=== PATIENT | female | born 2000 | race Caucasian/White ===

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

== ENCOUNTER 2018-02-23 01:22 | Emergency (ER) | payer MEDICAID ==
[2018-02-23 01:27] VITALS: BP 117/83
== END 2018-02-23 02:15 | disposition left against medical advice (07) ==
DX: Z53.21 Procedure and treatment not carried out due to patient leaving prior to being seen by health care provider (principal)

== ENCOUNTER 2018-02-28 10:42 | Emergency (ER) | payer SELFPAY ==
--- NOTE | 2018-02-28 11:18 | EDPHY ---
H & P Stated Complaint: N/V recently diagnosed with strep Time Seen by Provider: 02/28/18 11:01 HPI/ROS: CHIEF COMPLAINT: "I just feel terrible" HISTORY OF PRESENT ILLNESS: 17-year-old immunocompetent girl in the ER via private vehicle. Patient describes 1 week of feeling ill. She was initially evaluated at [facility] February 21 for similar complaints , diagnosed with strep pharyngitis prescribed Keflex and Zofran with negative mononucleosis in told that if her symptoms worsen to go to the ER. The next day she woke feeling worse, came to the [facility] here, registered however left without being seen. Today she went to [facility] complaining of 10 lb weight loss, inability to tolerate oral intake, nausea, abdominal cramping I was referred to the ER for evaluation. She also notes a new purpuric rash which is resolving however was more pronounced approximately 6-7 days ago. Nontender. She has photos of said lesions. She also complains of intermittent abdominal cramping which was exacerbated after she drank chocolate milk this morning. Denies: Chest pain, dyspnea, nuchal rigidity, otalgia, change in voice, visual acuity changes, ocular pain, ocular injection. At the time I interview and examine the patient she is complaining of sore throat, abdominal cramping, fatigue, arthralgia, myalgia PRIMARY CARE PROVIDER: [facility] REVIEW OF SYSTEMS: 10 systems reviewed and negative with the exception of the elements mentioned in the history of present illness PAST MEDICAL & SURGICAL HISTORY: No pertinent medical or surgical history SOCIAL HISTORY:Student nonsmoker PHYSICAL EXAM (Prior to examination, patient consented to physical exam, hands were washed and my usual and customary physical exam procedures followed) 1) GENERAL: Well-developed, well-nourished, alert and oriented. Appears to be in no acute distress. 2) HEAD: Normocephalic, atraumatic 3) HEENT: Pupils equal, round, reactive to light bilaterally. Sclera anicteric. No injection. No discharge. Nasopharynx, oropharynx, clear, no lesions. Moist Mucous membranes. No tonsillar enlargement or exudate. Ears bilaterally with normal tympanic membranes. No evidence of otitis media otitis externa. 4) NECK: Full range of motion, positive adenopathy. No meningeal signs.. 5) LUNGS: Clear auscultation bilaterally, no wheezes, no rhonchi, no retractions. 6) HEART: Regular rate and rhythm, no murmur, no heave, no gallop. 7) ABDOMEN: No guarding, no rebound, no focal tenderness, negative McBurney's, negative Fritz's, negative Rovsing's, negative peritoneal sign, 8) MUSCULOSKELETAL: Moving all extremities, no focal areas of tenderness, no obvious trauma. No peripheral edema or discoloration. 9) BACK: No CVA tenderness, no midline vertebral tenderness, no fluctuance, no step-off, no obvious trauma, no visual or palpable abnormality. 10) SKIN: Subacute purpuric non raise nontender lesions primarily to her lower extremities and to her buttock (exam with nurse Jinger at bedside) . Otherwise no lesions. No blistering, no sloughing of tissue. 11) Psychiatric: Patient is oriented X 3, there is no agitation. DIFFERENTIAL DIAGNOSIS: In no particular order including but not limited to viral syndrome, Henoch-Schoenlein purpura, mononucleosis - Personal History LMP (Females 10-55): Now Current Tetanus/Diphtheria Vaccine: Yes - Medical/Surgical History Hx Asthma: Yes Hx Chronic Respiratory Disease: No Hx Diabetes: No Hx Cardiac Disease: No Hx Renal Disease: No Hx Cirrhosis: No Hx Alcoholism: No Hx HIV/AIDS: No Hx Splenectomy or Spleen Trauma: No Other PMH: SPORT INDUC ASTHMA - Social History Smoking Status: Current every day smoker Constitutional: Initial Vital Signs Temperature (C) 37.0 C 02/28/18 10:55 Heart Rate 77 02/28/18 10:55 Respiratory Rate 18 02/28/18 10:55 Blood Pressure 135/102 H 02/28/18 10:55 O2 Sat (%) 96 02/28/18 10:55 O2 Delivery Mode Room Air Allergies/Adverse Reactions: No Known Allergies Allergy (Unverified 02/28/18 10:59) Home Medications: Medication Instructions Recorded Abx 02/23/18 Zofran Odt 02/23/18 Ondansetron Odt [Zofran Odt] 4 mg PO Q4PRN PRN #10 tab 02/28/18 Medical Decision Making - Diagnostics Imaging Results: Imaging Impressions Chest X-Ray 02/28/18 11:14 Impression: No acute pulmonary disease. ED Course/Re-evaluation: 12:30 p.m.: Patient was re-evaluated with serial exams. At this time she is resting comfortably, has received IV fluids and is feeling improvement in symptoms. I re-examined her abdomen which is soft , no guarding no rebound. I am unable to elicit any abdominal pain including her bilateral lower quadrants. I think that acute surgical abdominal pathology, acute appendicitis, intussusception, ovarian torsion or ovarian pathology are less than likely in this patient. We discussed her purpura which may be secondary to Henoch- Schoenlein purpura. She has no evidence of are renal dysfunction, she is tolerating oral intake. She states that she is hungry and would like to eat. She does note intermittent nausea and requests refill of Zofran which has been provided to her as well as a school note. At this time do not think that further diagnostic studies are indicated. Do not think that dedicated imaging of abdomen is indicated. I saw this patient independently based on established practice protocols. Care of patient under supervision of primary Supervising physician Dr Willard Griffith with whom I discussed case. - Data Points Laboratory Results: Laboratory Results 02/28/18 11:20 02/28/18 11:20 02/28/18 02/28/18 02/28/18 Unknown 11:45 11:45 WBC RBC Hgb Hct MCV MCH MCHC RDW Plt Count MPV Neut % (Auto) Lymph % (Auto) [place] % (Auto) Eos % (Auto) Baso % (Auto) Nucleat RBC Rel Count Absolute Neuts (auto) Absolute Lymphs (auto) Absolute Monos (auto) Absolute Eos (auto) Absolute Basos (auto) Absolute Nucleated RBC Immature Gran % Immature Gran # PT INR APTT 26.5 SEC SEC (23.0-38.0) Sodium Potassium Chloride Carbon Dioxide Anion Gap BUN Creatinine Estimated GFR Glucose Calcium Total Bilirubin Conjugated Bilirubin Unconjugated Bilirubin AST ALT Alkaline Phosphatase Total Protein Albumin Lipase Beta HCG, Qual Urine Color YELLOW Urine Appearance HAZY Urine pH 7.0 (5.0-7.5) Ur Specific [place] 1.020 (1.002-1.030) Urine Protein NEGATIVE (NEGATIVE) Urine Ketones NEGATIVE (NEGATIVE) Urine Blood 1+ H (NEGATIVE) Urine Nitrate NEGATIVE (NEGATIVE) Urine Bilirubin NEGATIVE (NEGATIVE) Urine Urobilinogen 2.0 EU H EU (0.2-1.0) Ur Leukocyte Esterase NEGATIVE (NEGATIVE) Urine RBC 1-3 /hpf /hpf (0-3) Urine WBC 1-3 /hpf /hpf (0-3) Ur Epithelial Cells TRACE /lpf /lpf (NONE-1+) Urine Mucus 1+ /lpf /lpf (NONE-1+) Urine Glucose NEGATIVE (NEGATIVE) Monoscreen Group A Strep Screen Group A Strep DNA Pending 02/28/18 02/28/18 02/28/18 11:30 11:20 11:20 WBC RBC Hgb Hct MCV MCH MCHC RDW Plt Count MPV Neut % (Auto) Lymph % (Auto) [place] % (Auto) Eos % (Auto) Baso % (Auto) Nucleat RBC Rel Count Absolute Neuts (auto) Absolute Lymphs (auto) Absolute Monos (auto) Absolute Eos (auto) Absolute Basos (auto) Absolute Nucleated RBC Immature Gran % Immature Gran # PT INR APTT Sodium 141 mEq/L mEq/L (135-145) Potassium 4.0 mEq/L mEq/L (3.3-5.0) Chloride 108 mEq/L mEq/L (97-110) Carbon Dioxide 25 mEq/l mEq/l (22-31) Anion Gap 8 mEq/L mEq/L (6-14) BUN 10 mg/dL mg/dL (7-23) Creatinine 0.7 mg/dL mg/dL (0.6-1.0) Estimated GFR > 60 Glucose 91 mg/dL mg/dL (70-100) Calcium 9.7 mg/dL mg/dL (8.5-10.4) Total Bilirubin 0.6 mg/dL mg/dL (0.1-1.4) Conjugated Bilirubin 0.2 mg/dL mg/dL (0.0-0.5) Unconjugated Bilirubin 0.4 mg/dL mg/dL (0.0-1.1) AST 49 IU/L H IU/L (14-46) ALT 41 IU/L IU/L (9-52) Alkaline Phosphatase 73 IU/L IU/L (38-126) Total Protein 7.4 g/dL g/dL (6.3-8.2) Albumin 4.2 g/dL g/dL (3.5-5.0) Lipase 147 IU/L IU/L (23-300) Beta HCG, Qual NEGATIVE Urine Color Urine Appearance Urine pH Ur Specific [place] Urine Protein Urine Ketones Urine Blood Urine Nitrate Urine Bilirubin Urine Urobilinogen Ur Leukocyte Esterase Urine RBC Urine WBC Ur Epithelial Cells Urine Mucus Urine Glucose Monoscreen NEGATIVE (NEGATIVE) Group A Strep Screen NEGATIVE (NEGATIVE) Group A Strep DNA 02/28/18 02/28/18 11:20 11:20 WBC 6.45 10^3/uL 10^3/uL (3.80-9.50) RBC 5.06 10^6/uL 10^6/uL (4.18-5.33) Hgb 14.9 g/dL g/dL (12.6-16.3) Hct 44.7 % % (38.0-47.0) MCV 88.3 fL fL (81.5-99.8) MCH 29.4 pg pg (27.9-34.1) MCHC 33.3 g/dL g/dL (32.4-36.7) RDW 14.8 % % (11.5-15.2) Plt Count 327 10^3/uL 10^3/uL (150-400) MPV 9.5 fL fL (8.7-11.7) Neut % (Auto) 59.2 % % (39.3-74.2) Lymph % (Auto) 30.7 % % (15.0-45.0) [place] % (Auto) 7.6 % % (4.5-13.0) Eos % (Auto) 2.0 % % (0.6-7.6) Baso % (Auto) 0.3 % % (0.3-1.7) Nucleat RBC Rel Count 0.0 % % (0.0-0.2) Absolute Neuts (auto) 3.82 10^3/uL 10^3/uL (1.70-6.50) Absolute Lymphs (auto) 1.98 10^3/uL 10^3/uL (1.00-3.00) Absolute Monos (auto) 0.49 10^3/uL 10^3/uL (0.30-0.80) Absolute Eos (auto) 0.13 10^3/uL 10^3/uL (0.03-0.40) Absolute Basos (auto) 0.02 10^3/uL 10^3/uL (0.02-0.10) Absolute Nucleated RBC 0.00 10^3/uL 10^3/uL (0-0.01) Immature Gran % 0.2 % % (0.0-1.1) Immature Gran # 0.01 10^3/uL 10^3/uL (0.00-0.10) PT REJ INR REJ APTT REJ Sodium Potassium Chloride Carbon Dioxide Anion Gap BUN Creatinine Estimated GFR Glucose Calcium Total Bilirubin Conjugated Bilirubin Unconjugated Bilirubin AST ALT Alkaline Phosphatase Total Protein Albumin Lipase Beta HCG, Qual Urine Color Urine Appearance Urine pH Ur Specific [place] Urine Protein Urine Ketones Urine Blood Urine Nitrate Urine Bilirubin Urine Urobilinogen Ur Leukocyte Esterase Urine RBC Urine WBC Ur Epithelial Cells Urine Mucus Urine Glucose Monoscreen Group A Strep Screen Group A Strep DNA Medications Given: Discontinued Medications Ondansetron HCl (Zofran) 4 mg IVP EDNOW ONE Stop: 02/28/18 11:53 Last Admin: 02/28/18 11:53 Dose: 4 mg Departure - Departure Disposition: Home, Routine, Self-Care Clinical Impression: Purpura, Viral syndrome Condition: Good Instructions: Ondansetron (By mouth), Viral Syndrome (ED) Additional Instructions: . Return to the emergency department immediately for change in breathing habits , change in voice, change in swallowing habits, change in mental status, or any other symptoms that concern you. Referrals: [facility] [Clinic] - 1-2 days without fail Stand Alone Forms: School Excuse Prescriptions: Ondansetron Odt [Zofran Odt] 4 mg PO Q4PRN PRN #10 tab PRN Reason: Nausea
[2018-02-28 11:30] LABS: PLATELET COUNT 327 10^3/uL (150-400)
[2018-02-28] MEDS ORDERED: ONDANSETRON 4 MG/2 ML VIAL ONE (11:51)
[2018-02-28] MEDS ORDERED: ONDANSETRON 4 MG/2 ML VIAL IVP ONE (11:52)
[2018-02-28 12:40] VITALS: BP 122/75
== END 2018-02-28 12:44 | disposition home or self-care (01) ==
DX: B34.9 Viral infection, unspecified (principal); F17.200 Nicotine dependence, unspecified, uncomplicated; Z79.2 Long term (current) use of antibiotics
CPT/HCPCS: 96374; J2405

== ENCOUNTER 2018-07-28 02:23 | Emergency (ER) | payer MEDICAID, OTHER ==
--- NOTE | 2018-07-28 02:37 | EDPHY ---
H & P Stated Complaint: vomiting, nausea x 24 hrs Time Seen by Provider: 07/28/18 02:37 HPI/ROS: HPI CHIEF COMPLAINT: Nausea, constipation HISTORY OF PRESENT ILLNESS: Patient is a 18-year-old female, otherwise healthy , has a history of anxiety, presents to the emergency room with nausea. The patient reports that she has had nausea for approximately a week. She was recently on spring. Recently [place]. She denies any large consumption of alcohol. She reports she related how much to drink. Over the past week she has had intermittent nausea. No vomiting. She also reports she has been constipated. Denies chest pain or shortness of breath, denies fever. Denies significant abdominal pain but does have some lower abdominal cramps. No urinary symptoms. Denies being . She went out tonight had 2 alcoholic beverages became more nauseous. No fever. Past Medical History: Anxiety Past Surgical History: Nasal surgery Social History: Denies drugs, [employer] student, occasional alcohol Family History: Noncontributory ROS REVIEW OF SYSTEMS: 10 Systems were reviewed and negative with the exception of the elements mentioned in the history of present illness. Exam Constitutional triage nursing summary reviewed, vital signs reviewed, awake/ alert. Vital signs stable appears well nontoxic Eyes normal conjunctivae and sclera, EOMI, PERRLA. HENT normal inspection, atraumatic, moist mucus membranes, no epistaxis, neck supple/ no meningismus, no raccoon eyes. Respiratory clear to auscultation bilaterally, normal breath sounds, no respiratory distress, no wheezing. Cardiovascular rate normal, regular rhythm, no murmur, no edema, distal pulses normal. Gastrointestinal soft, non-tender, no rebound, no guarding, normal bowel sounds, no distension, no pulsatile mass. Genitourinary no CVA tenderness. Musculoskeletal no midline vertebral tenderness, full range of motion, no calf swelling, no tenderness of extremities, no meningismus, good pulses, neurovascularly intact. Skin pink, warm, & dry, no rash, skin atraumatic. Neurologic awake, alert and oriented x 3, AAOx3, moves all 4 extremities equally, motor intact, sensory intact, CN II-XII intact, normal cerebellar, normal vision, normal speech. Psychiatric normal mood/affect. Heme/Lymph/Immune no lymphadenopathy. Differential Diagnosis: Differential diagnosis includes but is not limited to and in no particular order: Constipation, gastritis, Bowel obstruction, appendicitis, gallbladder disease, diverticulitis, colitis, enteritis, perforated viscus, gastritis, GERD, esophagitis, urinary tract infection, pyelonephritis, kidney stones Medical Decision Making: Plan for this patient IV establishment IV fluid bolus IV Zofran for nausea, basic labs, urinalysis and re-evaluate. Re-evaluation: Serum alcohol level 196 [id number] KUB reviewed stool present. No free air. 6:09 a.m. Patient resting comfortably no acute distress. Alcohol level was close to 200. She received IV fluids here and has done well. Zofran. No vomiting here in feels much better. Her abdomen is soft nontender. Recommend MiraLax for stool softeners for constipation. I also recommend she stop drinking alcohol. Also recommend she return emergency room she develops worsening abdominal pain, fever, vomiting. Patient p.o. Challenge well. Return precautions discussed with her. Recommend she refrain from drinking alcohol as this could be contributing to her nausea. Recommend ranitidine. MiraLax. Return if worse. Patient ambulated well throughout the emergency room. No vomiting. Source: Patient - Personal History LMP (Females 10-55): IUD In Place Current Tetanus Diphtheria and Acellular Pertussis (TDAP): Yes - Medical/Surgical History Hx Asthma: Yes Hx Chronic Respiratory Disease: No Hx Diabetes: No Hx Cardiac Disease: No Hx Renal Disease: No Hx Cirrhosis: No Hx Alcoholism: No Hx HIV/AIDS: No Hx Splenectomy or Spleen Trauma: No Other PMH: SPORT INDUC ASTHMA - Social History Smoking Status: Current every day smoker Constitutional: Initial Vital Signs Temperature (C) 36.4 C 07/28/18 02:26 Heart Rate 92 07/28/18 02:26 Respiratory Rate 20 07/28/18 02:26 Blood Pressure 117/84 H 07/28/18 02:26 O2 Sat (%) 98 07/28/18 02:26 O2 Delivery Mode Room Air Allergies/Adverse Reactions: No Known Allergies Allergy (Unverified 07/28/18 02:26) Home Medications: Medication Instructions Recorded Adderall 10 MG (*) 07/28/18 Polyethylene Glycol 3350 [Miralax 17 gm PO DAILY #4 pkt 07/28/18 17 gm (*)] Xanax 07/28/18 Medical Decision Making - Data Points Laboratory Results: Laboratory Results 07/28/18 03:00 07/28/18 03:00 07/28/18 07/28/18 07/28/18 03:55 03:00 03:00 WBC RBC Hgb Hct MCV MCH MCHC RDW Plt Count MPV Neut % (Auto) Lymph % (Auto) [place] % (Auto) Eos % (Auto) Baso % (Auto) Nucleat RBC Rel Count Absolute Neuts (auto) Absolute Lymphs (auto) Absolute Monos (auto) Absolute Eos (auto) Absolute Basos (auto) Absolute Nucleated RBC Immature Gran % Immature Gran # Sodium 144 mEq/L mEq/L (135-145) Potassium 4.1 mEq/L mEq/L (3.5-5.2) Chloride 107 mEq/L mEq/L (97-110) Carbon Dioxide 23 mEq/l mEq/l (22-31) Anion Gap 14 mEq/L mEq/L (6-14) BUN 9 mg/dL mg/dL (7-23) Creatinine 0.7 mg/dL mg/dL (0.6-1.0) Estimated GFR > 60 Glucose 81 mg/dL mg/dL (70-100) Calcium 9.1 mg/dL mg/dL (8.5-10.4) Total Bilirubin 0.3 mg/dL mg/dL (0.1-1.4) Conjugated Bilirubin 0.3 mg/dL mg/dL (0.0-0.5) Unconjugated Bilirubin 0.0 mg/dL mg/dL (0.0-1.1) AST 21 IU/L IU/L (14-46) ALT 19 IU/L IU/L (9-52) Alkaline Phosphatase 58 IU/L IU/L (38-126) Total Protein 8.2 g/dL g/dL (6.3-8.2) Albumin 4.9 g/dL g/dL (3.5-5.0) Beta HCG, Qual NEGATIVE Urine Color PALE YELLOW Urine Appearance CLEAR Urine pH 5.0 (5.0-7.5) Ur Specific [place] 1.005 (1.002-1.030) Urine Protein NEGATIVE (NEGATIVE) Urine Ketones NEGATIVE (NEGATIVE) Urine Blood NEGATIVE (NEGATIVE) Urine Nitrate NEGATIVE (NEGATIVE) Urine Bilirubin NEGATIVE (NEGATIVE) Urine Urobilinogen NEGATIVE EU EU (0.2-1.0) Ur Leukocyte Esterase NEGATIVE (NEGATIVE) Urine Glucose NEGATIVE (NEGATIVE) Urine Opiates Screen NEGATIVE (NEGATIVE) Urine Barbiturates NEGATIVE (NEGATIVE) Ur Phencyclidine Scrn NEGATIVE (NEGATIVE) Ur Amphetamine Screen NEGATIVE (NEGATIVE) U Benzodiazepines Scrn NEGATIVE (NEGATIVE) Urine Cocaine Screen NEGATIVE (NEGATIVE) U Marijuana (THC) Screen NON-NEGATIVE H (NEGATIVE) Ethyl Alcohol 196 mg/dL H mg/dL (0-10) 07/28/18 03:00 WBC 7.67 10^3/uL 10^3/uL (3.80-9.50) RBC 4.96 10^6/uL 10^6/uL (4.18-5.33) Hgb 14.7 g/dL g/dL (12.6-16.3) Hct 44.0 % % (38.0-47.0) MCV 88.7 fL fL (81.5-99.8) MCH 29.6 pg pg (27.9-34.1) MCHC 33.4 g/dL g/dL (32.4-36.7) RDW 12.9 % % (11.5-15.2) Plt Count 279 10^3/uL 10^3/uL (150-400) MPV 9.7 fL fL (8.7-11.7) Neut % (Auto) 69.8 % % (39.3-74.2) Lymph % (Auto) 24.5 % % (15.0-45.0) [place] % (Auto) 4.7 % % (4.5-13.0) Eos % (Auto) 0.4 % L % (0.6-7.6) Baso % (Auto) 0.5 % % (0.3-1.7) Nucleat RBC Rel Count 0.0 % % (0.0-0.2) Absolute Neuts (auto) 5.35 10^3/uL 10^3/uL (1.70-6.50) Absolute Lymphs (auto) 1.88 10^3/uL 10^3/uL (1.00-3.00) Absolute Monos (auto) 0.36 10^3/uL 10^3/uL (0.30-0.80) Absolute Eos (auto) 0.03 10^3/uL 10^3/uL (0.03-0.40) Absolute Basos (auto) 0.04 10^3/uL 10^3/uL (0.02-0.10) Absolute Nucleated RBC 0.00 10^3/uL 10^3/uL (0-0.01) Immature Gran % 0.1 % % (0.0-1.1) Immature Gran # 0.01 10^3/uL 10^3/uL (0.00-0.10) Sodium Potassium Chloride Carbon Dioxide Anion Gap BUN Creatinine Estimated GFR Glucose Calcium Total Bilirubin Conjugated Bilirubin Unconjugated Bilirubin AST ALT Alkaline Phosphatase Total Protein Albumin Beta HCG, Qual Urine Color Urine Appearance Urine pH Ur Specific [place] Urine Protein Urine Ketones Urine Blood Urine Nitrate Urine Bilirubin Urine Urobilinogen Ur Leukocyte Esterase Urine Glucose Urine Opiates Screen Urine Barbiturates Ur Phencyclidine Scrn Ur Amphetamine Screen U Benzodiazepines Scrn Urine Cocaine Screen U Marijuana (THC) Screen Ethyl Alcohol Medications Given: Discontinued Medications Sodium Chloride (Ns) 1,000 mls @ 0 mls/hr IV EDNOW ONE; Wide Open PRN Reason: Protocol Stop: 07/28/18 02:46 Last Admin: 07/28/18 02:58 Dose: 1,000 mls Sodium Chloride (Ns) 1,000 mls @ 0 mls/hr IV EDNOW ONE; Wide Open PRN Reason: Protocol Stop: 07/28/18 02:46 Last Admin: 07/28/18 03:19 Dose: 1,000 mls Ondansetron HCl (Zofran) 4 mg IVP EDNOW ONE Stop: 07/28/18 02:46 Last Admin: 07/28/18 02:58 Dose: 4 mg Departure - Departure Disposition: Home, Routine, Self-Care Clinical Impression: Alcohol intoxication Qualifiers: Complication of substance-induced condition: uncomplicated Qualified Code(s): F10.920 - Alcohol use, unspecified with intoxication, uncomplicated Vomiting Qualifiers: Vomiting type: unspecified Vomiting Intractability: non-intractable Nausea presence: with nausea Qualified Code(s): R11.2 - Nausea with vomiting, unspecified Condition: Good Instructions: Ondansetron (By mouth), Constipation (ED), Alcohol Intoxication ( ED) Additional Instructions: 1. Do not drink alcohol. 2. Return to the emergency room if develops worsening abdominal pain, vomiting 3. MiraLax for constipation 4. Ranitidine for GI upset. Referrals: NONE *PRIMARY CARE P,. [Primary Care Provider] - As per Instructions [facility]] - As per Instructions Prescriptions: Polyethylene Glycol 3350 [Miralax 17 gm (*)] 17 gm PO DAILY #4 pkt
[2018-07-28] MEDS ORDERED: ONDANSETRON 4 MG/2 ML VIAL IVP ONE (02:45)
[2018-07-28] MEDS ORDERED: NS 1,000 ML IV ONE ×2 (02:45)
[2018-07-28 03:18] LABS: PLATELET COUNT 279 10^3/uL (150-400)
[2018-07-28] MEDS ORDERED: ONDANSETRON 4MG PREPACK#2 BTL TAKEHOME ONE ×2 (06:24)
[2018-07-28 06:44] VITALS: BP 94/53
== END 2018-07-28 06:45 | disposition home or self-care (01) ==
DX: F10.920 Alcohol use, unspecified with intoxication, uncomplicated (principal); E86.9 Volume depletion, unspecified; Y90.6 Blood alcohol level of 120-199 mg/100 ml; F41.9 Anxiety disorder, unspecified
CPT/HCPCS: 80305; 96374; G0480; J2405

== ENCOUNTER 2018-08-07 20:36 | Emergency (ER) | payer OTHER ==
[2018-08-07] MEDS ORDERED: KETOROLAC 30 MG/1 ML SDV IVP ONE (20:49)
[2018-08-07] MEDS ORDERED: NS 1,000 ML IV ONE (20:49)
[2018-08-07] MEDS ORDERED: PROMETHAZINE HCL 25 MG/ML INJ IVP ONE (20:49)
--- NOTE | 2018-08-07 20:49 | EDPHY ---
H & P Stated Complaint: ABNORMAL VAGINAL BLEEDING N/V Time Seen by Provider: 08/07/18 20:44 HPI/ROS: HPI: This is a 18-year-old female who presents with Chief Complaint: Left lower quadrant pain, vaginal bleeding Location: Left lower quadrant abdomen Quality: Pain Duration: 1 week Signs and Symptoms: no fever, + nausea, no vomiting, no hematemesis, no blood in stool, no abdominal bloating, no diarrhea, no back pain, no urinary symptoms , no vaginal discharge, + scant vaginal bleeding, no indigestion, no chest pain , no shortness of breath Timing: Acute, constant Severity: Worse today Context: Patient presents with complaints of left lower quadrant pain x1 week that is nonradiating in nature and became more severe today. She complains of nausea but no vomiting, fever, diarrhea, back pain, urinary symptoms, vaginal discharge. Last Tuesday she developed the left lower quadrant pain accompanied by nausea. She went to the [facility] on and had pelvic exam with pelvic swabs along with pelvic ultrasound showing a 5 mm left adnexal cyst. Patient reports that she left on Tuesday for [place] [employer]. Tuesday she received a call from the nurse at the [facility] who advised her that she tested positive for Chlamydia. An antibiotic was called in for her and she took 2 pills x1 on Tuesday. Patient has an IUD in normally does not have regular menses. Yesterday and today she started to developed scant vaginal bleeding. Patient reports that she has not had sexual intercourse in the last 1 week. Modifying Factors: Antibiotic Comment: ROS: A comprehensive 10 system review of systems is otherwise negative aside from elements mentioned in the history of present illness. MEDICAL/SURGICAL/SOCIAL HISTORY: Medical history: Attention deficit hyperactivity disorder, anxiety, asthma Surgical history: Rhinoplasty Social history: Student at [employer]. Family history noncontributory. CONSTITUTIONAL: Well-developed, well-nourished, nontoxic-appearing and extremely well-appearing young adult white female, awake and alert, no obvious distress HEENT: Atraumatic and normocephalic, PERRL, EOMI. Nares patent; no rhinorrhea; no nasal mucosal edema. Tympanic membranes clear. Oropharynx clear, no exudate and moist pink mucosa. Airway patent. No lymphadenopathy. No meningismus. Cardiovascular: Normal S1/S2, tachycardia, regular rhythm, without murmur rub or gallop. PULMONARY/CHEST: Symmetrical and nontender. Clear to auscultation bilaterally. Good air movement. No accessory muscle usage. ABDOMEN: Soft, nondistended, moderate left lower quadrant tenderness, no rebound, no guarding, no peritoneal signs, no masses or organomegaly. No CVAT. PELVIC: normal external genitalia, normal cervix, cervical os was closed, no cervical motion tenderness, no adnexal mass, no discharge, scant dark amount of bleeding. The exam was performed with a double bass player. EXTREMITIES: 2/2 pulses, strength 5/5, no deformities, no clubbing, no cyanosis or edema. NEUROLOGICAL: no focal neuro deficits. GCS 15. SKIN: Warm and dry, no erythema. no rash. Good capillary refill. Source: Patient Exam Limitations: No limitations - Personal History LMP (Females 10-55): IUD In Place - Medical/Surgical History Hx Asthma: Yes Hx Chronic Respiratory Disease: No Hx Diabetes: No Hx Cardiac Disease: No Hx Renal Disease: No Hx Cirrhosis: No Hx Alcoholism: No Hx HIV/AIDS: No Hx Splenectomy or Spleen Trauma: No Other PMH: SPORT INDUC ASTHMA, NOSE JOB, STI - Social History Smoking Status: Current every day smoker Constitutional: Initial Vital Signs Temperature (C) 37.2 C 08/07/18 20:40 Heart Rate 116 H 08/07/18 20:40 Respiratory Rate 16 08/07/18 20:40 Blood Pressure 124/98 H 08/07/18 20:40 O2 Sat (%) 99 08/07/18 20:40 O2 Delivery Mode Room Air Allergies/Adverse Reactions: No Known Allergies Allergy (Unverified 07/28/18 02:26) Home Medications: Medication Instructions Recorded Adderall 10 MG (*) 07/28/18 Xanax 07/28/18 Doxycycline Hyclate 100 mg PO BID 7 Days #14 tablet 08/07/18 Ondansetron Odt [Zofran Odt 4 mg 4 mg PO Q4 PRN #12 tab 08/07/18 (*)] Medical Decision Making - Diagnostics Imaging Results: Imaging Impressions Pelvic/Renal Ultrasound 08/07/18 20:49 Impression: Essentially unremarkable pelvic ultrasound. Naa Evelyn was notified of these findings by telephone at 9:33 PM on 08/07/2018. ED Course/Re-evaluation: Vital signs reviewed and show mild tachycardia. IV access, laboratory studies, urinalysis, pelvic ultrasound, pelvic swabs ordered Given 1 L normal saline, IV Toradol 30 mg and IV promethazine 12.5 mg 2139: Laboratory studies reviewed. No signs of leukocytosis/anemia/platelet dysfunction/ROB/electrolyte imbalance/. 2142: Called by Radiology, Dr. Tejeda, who reports pelvic ultrasound shows an IUD in place, left ovarian cyst measures 2.6 x 1.5 x 2 cm; no signs of ovarian torsion, no ectopic . 2199: Pelvic exam shows no cervical motion tenderness or concern for pelvic inflammatory disease. Pelvic swabs sent and results pending. Given IM ceftriaxone 250 mg and doxycycline prepack as well as prescription for same x7 days. School excuse provided for tomorrow. No signs of pelvic inflammatory disease. This patient was seen under the supervision of my secondary supervising physician. I evaluated care for this patient with attending. Differential Diagnosis: Abdominal pain in a female including but not limited to ovarian cyst, pelvic inflammatory disease, ovarian torsion, urinary tract infection, and appendicitis. - Data Points Laboratory Results: Laboratory Results 08/07/18 20:58 08/07/18 20:58 08/07/18 08/07/18 08/07/18 22:00 22:00 20:58 WBC RBC Hgb Hct MCV MCH MCHC RDW Plt Count MPV Neut % (Auto) Lymph % (Auto) [place] % (Auto) Eos % (Auto) Baso % (Auto) Nucleat RBC Rel Count Absolute Neuts (auto) Absolute Lymphs (auto) Absolute Monos (auto) Absolute Eos (auto) Absolute Basos (auto) Absolute Nucleated RBC Immature Gran % Immature Gran # Sodium Potassium Chloride Carbon Dioxide Anion Gap BUN Creatinine Estimated GFR Glucose Calcium Beta HCG, Qual NEGATIVE Shaneka species DNA Pending C.trachomatis RNA (TMA) Pending Gardnerella DNA Probe Pending N.gonorrhoeae RNA (TMA) Pending Trichomonas DNA Probe Pending 08/07/18 08/07/18 20:58 20:58 WBC 7.10 10^3/uL 10^3/uL (3.80-9.50) RBC 4.60 10^6/uL 10^6/uL (4.18-5.33) Hgb 14.1 g/dL g/dL (12.6-16.3) Hct 42.0 % % (38.0-47.0) MCV 91.3 fL fL (81.5-99.8) MCH 30.7 pg pg (27.9-34.1) MCHC 33.6 g/dL g/dL (32.4-36.7) RDW 12.9 % % (11.5-15.2) Plt Count 289 10^3/uL 10^3/uL (150-400) MPV 9.7 fL fL (8.7-11.7) Neut % (Auto) 57.7 % % (39.3-74.2) Lymph % (Auto) 28.2 % % (15.0-45.0) [place] % (Auto) 7.9 % % (4.5-13.0) Eos % (Auto) 5.8 % % (0.6-7.6) Baso % (Auto) 0.3 % % (0.3-1.7) Nucleat RBC Rel Count 0.0 % % (0.0-0.2) Absolute Neuts (auto) 4.10 10^3/uL 10^3/uL (1.70-6.50) Absolute Lymphs (auto) 2.00 10^3/uL 10^3/uL (1.00-3.00) Absolute Monos (auto) 0.56 10^3/uL 10^3/uL (0.30-0.80) Absolute Eos (auto) 0.41 10^3/uL H 10^3/uL (0.03-0.40) Absolute Basos (auto) 0.02 10^3/uL 10^3/uL (0.02-0.10) Absolute Nucleated RBC 0.00 10^3/uL 10^3/uL (0-0.01) Immature Gran % 0.1 % % (0.0-1.1) Immature Gran # 0.01 10^3/uL 10^3/uL (0.00-0.10) Sodium 140 mEq/L mEq/L (135-145) Potassium 3.8 mEq/L mEq/L (3.5-5.2) Chloride 103 mEq/L mEq/L (97-110) Carbon Dioxide 26 mEq/l mEq/l (22-31) Anion Gap 11 mEq/L mEq/L (6-14) BUN 16 mg/dL mg/dL (7-23) Creatinine 0.8 mg/dL mg/dL (0.6-1.0) Estimated GFR > 60 Glucose 93 mg/dL mg/dL (70-100) Calcium 9.7 mg/dL mg/dL (8.5-10.4) Beta HCG, Qual Shaneka species DNA C.trachomatis RNA (TMA) Gardnerella DNA Probe N.gonorrhoeae RNA (TMA) Trichomonas DNA Probe Medications Given: Discontinued Medications Ceftriaxone Sodium (Rocephin Im Syringe) 250 mg IM EDNOW ONE PRN Reason: Protocol Stop: 08/07/18 22:03 Last Admin: 08/07/18 22:49 Dose: 250 mg Doxycycline Hyclate (Vibramycin 100 Mg Prepack#2) 1 btl TAKEHOME EDNOW ONE Stop: 08/07/18 22:03 Last Admin: 08/07/18 22:50 Dose: 1 btl Sodium Chloride (Ns) 1,000 mls @ 0 mls/hr IV ONCE ONE; Wide Open PRN Reason: Protocol Stop: 08/07/18 20:50 Last Admin: 08/07/18 21:19 Dose: 1,000 mls Ketorolac Tromethamine (Toradol) 30 mg IVP EDNOW ONE Stop: 08/07/18 20:50 Last Admin: 08/07/18 21:17 Dose: 30 mg Promethazine HCl (Phenergan) 12.5 mg IVP ONCE ONE Stop: 08/07/18 20:50 Last Admin: 08/07/18 21:18 Dose: 12.5 mg Departure - Departure Disposition: Home, Routine, Self-Care Clinical Impression: Left ovarian cyst, Infection of vagina due to Chlamydia trachomatis Condition: Good Instructions: Ovarian Cyst (ED), Chlamydia (ED) Additional Instructions: Consume a minimum of 8-10 glasses of water or electrolyte fluid replacement drinks that include Gatorade, Powerade, Pedialyte. Eat a bland diet for the next 48 hours and then slowly advance as tolerated. Take antibiotic as directed. Do not skip a dose. Take Zofran 1 tablet every 4-6 hours as needed for nausea, vomiting. [facility] or [facility] for a pelvic ultrasound to document interval change of small left ovarian cyst. Please refrain from sexual intercourse until all antibiotics have been treated. Referrals: [facility] [[facility]] - As per Instructions [facility] [Cl[facility]] - As per Instructions Stand Alone Forms: School Excuse Prescriptions: Doxycycline Hyclate 100 mg PO BID 7 Days #14 tablet Ondansetron Odt [Zofran Odt 4 mg (*)] 4 mg PO Q4 PRN #12 tab PRN Reason: Nausea/Vomiting, Use 1st
[2018-08-07 21:11] LABS: PLATELET COUNT 289 10^3/uL (150-400)
[2018-08-07] MEDS ORDERED: DOXYCYCLINE 100 MG PREPACK#2 BTL TAKEHOME ONE (22:02)
[2018-08-07 23:13] VITALS: BP 104/72
[2018-08-08 12:54] LABS: GC AMPLIFICATION GENPROBE NEGATIVE (NEGATIVE)
== END 2018-08-07 23:17 | disposition home or self-care (01) ==
DX: N83.202 Unspecified ovarian cyst, left side (principal); A56.02 Chlamydial vulvovaginitis; Z97.5 Presence of (intrauterine) contraceptive device; E86.9 Volume depletion, unspecified
CPT/HCPCS: 96374; J0696; J1885; J2550